=== PATIENT | female | born 1980 | race Caucasian/White ===

== ENCOUNTER 2016-11-18 09:26 | Emergency (ER) | payer OTHER ==
[~2016-11-18 09:26] MED LIST: ALBUTEROL17 GM INH; CORTISPORIN-TC10 ML OT; DOLOBID PO; FLEXERIL PO; FLEXERIL10 MG PO; IBUPROFEN800 MG PO; KETOPROFEN PO; NO MEDICATIONS; ORUDIS75 M1 PO; PHENERGAN PO; VICODIN 5/500 T1 TAB PO; ZITHROMAX PO
[2016-11-18 10:43] LABS: URINE SOURCE CLEAN CATCH
[2016-11-18 10:48] LABS: URINE APPEARANCE CLEAR; URINE BILIRUBIN NEG (NEG); URINE BLOOD 1+ (NEG); URINE COLOR YELLOW; URINE GLUCOSE NEG (NEG); URINE KETONE NEG (NEG); URINE LEUKOCYTE ESTERASE NEG (NEG); URINE NITRATE NEG (NEG); URINE PH 5.5 (5-8); URINE PROTEIN NEG (NEG); URINE SPECIFIC GRAVITY 1.023 (1.003-1.035)
[2016-11-18 10:49] LABS: BASOPHIL# 0.1 X10e3 (0-0.3); BASOPHIL% 0.9 % (0-2.5); EOSINOPHIL% 0.3 % (0.0-7.0); HEMATOCRIT 40.5 % (35.0-45.0); HEMOGLOBIN 13.5 gm/dL (12.0-16.0); LYMPHOCYTE# 1.6 X10e3 (1.0-3.5); LYMPHOCYTE% 17.9 % (17.0-45.0); MEAN CELL VOLUME 92.2 FL (83-96); MEAN CORPUSCULAR HEMOGLOBIN 30.8 PG (28-34); MEAN CORPUSCULAR HGB CONC 33.4 g/dL (30-36); MEAN PLATELET VOLUME 8.2 FL (6.5-11.5); MONOCYTE# 0.7 X10e3 (0-1.0); MONOCYTE% 7.3 % (3.0-12.0); NEUTROPHIL# 6.6 X10e3 (1.5-7.1); NEUTROPHIL% 73.6 % (40-75); PLATELET COUNT 282 X10e3 (140-420); RED BLOOD COUNT 4.39 X10e (3.90-5.30); RED CELL DISTRIBUTION WIDTH 12.8 % (11.0-15.5)
[2016-11-18 10:51] LABS: DIFF IND NO
[2016-11-18 10:51] LABS: U HYALINE CASTS AUWI 0-2 /[LPF]; URBCS1 AUWI 0-2 /[HPF] (0-2); URINE BACTERIA AUWI NEG (NEGATIVE); URINE SQUAMOUS EPITHELIAL CELL NONE SEEN /[HPF]; UWBCS1 AUWI 0-2 (0-5)
[2016-11-18 10:56] LABS: CULTURE INDICATED? NO
[2016-11-18 11:14] LABS: ALBUMIN SERUM 3.9 g/dL (3.5-5.0); BILIRUBIN, DIRECT 0.1 mg/dL (0.0-0.2); BILIRUBIN,INDIRECT 0.5 mg/dL (0.0-0.9); BILIRUBIN,TOTAL 0.6 mg/dL (0.2-2.0); BUN/CREATININE RATIO 13.75; CALCIUM SERUM 8.9 mg/dL (8.4-10.2); CREATININE SERUM 0.8 mg/dL (0.6-1.4); GLOM FILT RATE Estimated 94.3 mL/min (>60); POTASSIUM 3.5 mmol/L (3.5-5.1); PROTEIN TOTAL SERUM 6.4 g/dL (6.0-8.3)
== END 2016-11-18 12:16 | disposition home or self-care (01) ==
LOC: CED 09:26
PROVIDERS: Nurse Practitioner
DX: R11.2 Nausea with vomiting, unspecified (principal); F17.210 Nicotine dependence, cigarettes, uncomplicated; Z90.49 Acquired absence of other specified parts of digestive tract; Z90.89 Acquired absence of other organs
CPT/HCPCS: 36415; 80048; 80076; 81003; 82150; 83690; 84703; 85025; 99283; 99284

== ENCOUNTER 2017-01-20 11:22 | Emergency (ER) | payer OTHER ==
[~2017-01-20] VITALS: Ht 167.6 cm; Wt 61.2 kg
--- NOTE | ~2017-01-20 | CR230 ---
[facility] A Service of [facility] & [facility] RADIOLOGY TEXT RESULTS PATIENT: JANIE WATSON LOCATION: CFTX : 78 UNIT #: [id number] AGE: [address]: Tiana Maldonado APRN SEX: F ORDER DR: [id number] [facility] [address] [place], [place] [address] [id number] E MR#: [id number] Acc #: [id number] NAME: JANIE WATSON : 1980 SEX: F STUDY DATE/TIME: 01/20/2017 12:37 UNIT: [facility] ROOM: STUDY DESCRIPTION: CR Shoulder Min 2 View Rt Attending Physician: Tiana Maldonado A.P.R.N. Ordering Physician: Ed Taco Messer M.D. Primary Care Physician: [facility] MEDICAL IMAGING REPORT This report is preliminary unless electronic signature is present EXAM Right shoulder 01/20/2017 HISTORY 36-year-old female with right shoulder pain beginning today. No specific injury. COMPARISON None FINDINGS 3 views of the right shoulder demonstrate no acute fracture or dislocation. Acromioclavicular joint is within normal limits. Soft tissues are unremarkable. IMPRESSION Unremarkable right shoulder Dictated by... Mac Roberson M.D. THIS IS AN ELECTRONICALLY VERIFIED REPORT Mac Roberson M.D. at 01/21/2017 5:06 PM PARISH/jodi TD: 01/20/2017 22:07 JOB #: [id number] MEDICAL IMAGING REPORT Page 1 of 1 COPY
== END 2017-01-20 13:53 | disposition home or self-care (01) ==
LOC: CFTX 11:22 → CED 11:22 → CFTX 12:19
DX: S46.911A Strain of unspecified muscle, fascia and tendon at shoulder and upper arm level, right arm, initial encounter (principal); Z90.49 Acquired absence of other specified parts of digestive tract; F17.210 Nicotine dependence, cigarettes, uncomplicated; X50.9XXA Other and unspecified overexertion or strenuous movements or postures, initial encounter
CPT/HCPCS: 73030; 99283